=== PATIENT | female | born 1990 | race Hispanic/Latino ===

== ENCOUNTER 2024-11-28 13:56 | Day surgery (SDC) | payer OTHER ==
[2024-11-28] MEDS ORDERED: hydrALAZINE 20 MG/ML VIAL SLOW IVP PRN (14:44)
[2024-11-28 15:28] LABS: Glucose, Urine (Dipstick) Normal (Negative); Leukocyte 25 (Negative); Protein, Urine (Dipstick) 30 mg/dl (Neg-Trace); Specific Gravity, Urine 1.020 (1.005-1.030)
[2024-11-28 16:18] LABS: RBC/HPF 0-3 HPF (0-3)
[2024-11-28 16:19] LABS: Bacteria/HPF 2+ HPF (None Seen); Mucous/LPF 3+ LPF (<2+)
== END 2024-11-28 17:15 | disposition home health service (06) ==
LOC: CSHLD/OP 13:56
PROVIDERS: ATTEND Family Medicine
DX: O47.03 False labor before 37 completed weeks of gestation, third trimester (principal); O23.43 Unspecified infection of urinary tract in pregnancy, third trimester; O09.43 Supervision of pregnancy with grand multiparity, third trimester; O24.419 Gestational diabetes mellitus in pregnancy, unspecified control; Z3A.35 35 weeks gestation of pregnancy; Z79.899 Other long term (current) drug therapy
CPT/HCPCS: 81001; 99283

== ENCOUNTER 2024-12-01 08:29 | Day surgery (SDC) | payer OTHER ==
[2024-12-01 09:08] VITALS: BMI 36.2
[2024-12-01] MEDS ORDERED: hydrALAZINE 20 MG/ML VIAL SLOW IVP PRN (09:44)
== END 2024-12-01 11:00 | disposition home or self-care (01) ==
LOC: CSHLD/OP 08:29
PROVIDERS: ATTEND Family Medicine
DX: O47.03 False labor before 37 completed weeks of gestation, third trimester (principal); Z3A.35 35 weeks gestation of pregnancy; Z90.49 Acquired absence of other specified parts of digestive tract; Z88.1 Allergy status to other antibiotic agents; Z79.899 Other long term (current) drug therapy
CPT/HCPCS: 99283

== ENCOUNTER 2024-12-08 13:48 | Day surgery (SDC) | payer OTHER ==
[2024-12-08 15:34] LABS: #Basophils Less than 0.03 10x3/uL (0.0-0.2); #Eosinophils 0.10 10x3/uL (0.0-0.5); #Monocytes 1.10 10x3/uL (0.0-1.1); #Neutrophils 7.94 10x3/uL (1.5-8.4); %Basophils 0.2 % (0.0-2.0); %Eosinophils 0.9 % (0.0-6.0); %Lymphocytes 14.9 % (18.0-47.0); %Monocytes 10.1 % (0.0-10.0); %Neutrophils 73.1 % (40.0-75.0); Hematocrit 32.3 % (34.9-44.5); Hemoglobin 10.7 g/dL (12.0-15.5); Mean Corpuscular Hemoglobin 28.4 pg (27.0-33.0); Mean Corpuscular Volume 85.7 fL (81.6-98.3); Platelet Count 271 10x3/uL (150-450); Red Blood Cell (RBC) Count 3.77 10x6/uL (3.90-5.03); White Blood Cell (WBC) Count 10.87 10x3/uL (3.5-10.5)
[2024-12-08 15:36] LABS: Glucose, Urine (Dipstick) Normal (Negative); Leukocyte 100 (Negative); Protein, Urine (Dipstick) 30 mg/dl (Neg-Trace); Specific Gravity, Urine 1.010 (1.005-1.030)
[2024-12-08 15:50] LABS: CAUTI Indications for Culture Pregnancy; WBC/HPF 21-50 HPF (0-3)
[2024-12-08 15:51] LABS: Bacteria/HPF 1+ HPF (None Seen); Yeast-Budding 1+ HPF (None Seen)
[2024-12-08 15:52] LABS: Urine Culture Reflex Yes Yes
[2024-12-08 15:55] LABS: ALT (SGPT) 21 U/L (Less than 34); AST (SGOT) 27 U/L (11-34); Albumin 2.5 g/dL (3.1-4.5); Alkaline Phosphatase 222 U/L (40-110); Anion Gap 11 mmol/L (10-20); BUN (Urea Nitrogen) 7 mg/dL (7.0-18.7); Bilirubin, Total 0.5 mg/dL (0.3-1.2); Calc. Creatinine Clearance 0 mL/min (70-130); Calcium 8.8 mg/dL (7.8-10.44); Carbon Dioxide 24 mmol/L (22-29); Chloride 106 mmol/L (98-107); Globulin 4.3 g/dL (2.4-3.5); Glucose 100 mg/dL (70-105); Lipase 14 U/L (8-78); Potassium 3.9 mmol/L (3.5-5.1); Sodium 137 mmol/L (136-145)
[2024-12-08 17:11] VITALS: BMI 35.9
== END 2024-12-08 18:07 | disposition home or self-care (01) ==
LOC: CSHERS 13:48 → CSHLD/OP 16:55
PROVIDERS: ATTEND Family Medicine
DX: O26.893 Other specified pregnancy related conditions, third trimester (principal); L29.9 Pruritus, unspecified; O23.43 Unspecified infection of urinary tract in pregnancy, third trimester; N39.0 Urinary tract infection, site not specified; O98.813 Other maternal infectious and parasitic diseases complicating pregnancy, third trimester; B37.31 Acute candidiasis of vulva and vagina; Z3A.36 36 weeks gestation of pregnancy; Z88.8 Allergy status to other drugs, medicaments and biological substances
CPT/HCPCS: 80053; 81001; 82239; 83690; 85025; 87086; 99283

== ENCOUNTER 2024-12-14 12:17 | Inpatient (IN) | payer OTHER ==
[2024-12-14 13:06] VITALS: BMI 36.0
[2024-12-14] MEDS ORDERED: HYDROcodone/Acetaminophen 5/325 mg Tablet PO PRN (13:15)
[2024-12-14] MEDS ORDERED: hydrALAZINE 20 MG/ML VIAL SLOW IVP PRN (13:15)
[2024-12-14] MEDS ORDERED: Oxytocin 30 units/NS 500 ML 500 ML IV SCH (13:15)
[2024-12-14] MEDS ORDERED: Ondansetron PF 4 MG/2 ML Vial IVP PRN (13:15)
[2024-12-14] MEDS ORDERED: Diphenoxylate HCl/Atropine Tablet PO PRN (13:15)
[2024-12-14] MEDS ORDERED: Lidocaine 1% (PF) 30 ML VIAL SC PRN (13:15)
[2024-12-14] MEDS ORDERED: Carboprost 250 MCG/ML AMP IM PRN (13:15)
[2024-12-14] MEDS ORDERED: Acetaminophen 500 MG TAB PO PRN (13:15)
[2024-12-14 14:03] LABS: Fetal Membranes Rupture RUPTURE DETECTED (No Rupture)
[2024-12-14] MEDS: Oxytocin 30 units/NS 500 ML 500 ML IV SCH ×2 (14:35→22:35)
[2024-12-14 14:49] LABS: Hematocrit 33.5 % (34.9-44.5); Hemoglobin 10.7 g/dL (12.0-15.5); Mean Corpuscular Hemoglobin 27.6 pg (27.0-33.0); Mean Corpuscular Volume 86.6 fL (81.6-98.3); Platelet Count 240 10x3/uL (150-450); Red Blood Cell (RBC) Count 3.87 10x6/uL (3.90-5.03); White Blood Cell (WBC) Count 9.45 10x3/uL (3.5-10.5)
[2024-12-14 15:25] LABS: Syphilis Antibody Index 0.17 S/CO (<1.00 Non-Reactive)
[2024-12-14 15:26] LABS: Hep B Surf Ag - L&D Non-Reactive S/CO (NonReactive)
[2024-12-14] MEDS: Methylergonovine 0.2 MG/ML VIAL IM PRN (22:35)
[2024-12-14] MEDS: Tranexamic Acid 1,000 MG/10 ML VIAL IVP PRN (22:43)
[2024-12-14] MEDS: Ibuprofen 800 MG TAB PO PRN (23:45)
[2024-12-15] MEDS ORDERED: Lanolin Ointment 7 GM TUBE TOP PRN (02:16)
[2024-12-15] MEDS ORDERED: hydrALAZINE 20 MG/ML VIAL SLOW IVP PRN (02:16)
[2024-12-15] MEDS ORDERED: Boostrix 0.5 ML (Tdap) VIAL (>/=7 yrs of age) IM ONE (02:16)
[2024-12-15] MEDS ORDERED: Bisacodyl 10 MG SUPP PR PRN (02:16)
[2024-12-15] MEDS ORDERED: diphenhydrAMINE 25 MG CAP PO PRN (02:16)
[2024-12-15] MEDS ORDERED: Milk Of Magnesia 30 ML UDCUP PO PRN (02:16)
[2024-12-15] MEDS ORDERED: Ondansetron PF 4 MG/2 ML Vial IVP PRN (02:16)
[2024-12-15] MEDS: Ibuprofen 800 MG TAB PO SCH (08:16)
[2024-12-15] MEDS: Ferrous Sulfate 325 MG TAB PO SCH (08:18)
[2024-12-15] MEDS: HYDROcodone/Acetaminophen 5/325 mg Tablet PO PRN (14:54)
[2024-12-16 08:10] VITALS: BP 116/59; TEMP 97.8
== END 2024-12-16 11:10 | disposition home or self-care (01) | DRG 806 ==
LOC: CSHLD/OP 12:17 → CSHLD 13:44 → CSHANTE 12-15 01:00
PROVIDERS: ADMIT Family Medicine; ATTEND Family Medicine
PROC: 10E0XZZ Delivery of Products of Conception, External Approach (ICD-10-PCS; principal; 2024-12-14)
PROC: 10H07YZ Insertion of Other Device into Products of Conception, Via Natural or Artificial Opening (ICD-10-PCS; 2024-12-14)
DX: O42.92 Full-term premature rupture of membranes, unspecified as to length of time between rupture and onset of labor (principal); O26.643 Intrahepatic cholestasis of pregnancy, third trimester; Z37.0 Single live birth; Z3A.37 37 weeks gestation of pregnancy; Z79.899 Other long term (current) drug therapy; Z79.82 Long term (current) use of aspirin; Z88.8 Allergy status to other drugs, medicaments and biological substances
CPT/HCPCS: 36415; 51701; 84112; 85027; 86780; 86850; 86900; 86901; 87340; 99285; J0595; J2210; J2590; J7120